=== PATIENT | female | born 1980 | race American Indian/Alaskan Native ===

== ENCOUNTER 2020-07-12 07:06 | Day surgery (SDC) | payer OTHER ==
[~2020-07-12 07:06] MED LIST: LACTATED RINGERS 1,000 ML IV SCH; MIDAZOLAM 2 MG/2 ML INJ IV NR
[2020-07-12] MEDS ORDERED: FAMOTIDINE 20 MG/2 ML INJ IV NR (07:50)
--- NOTE | 2020-07-12 07:50 | Anesthesia Day of Surgery ---
Anesthesia Day of Surgery - Day of Surgery Patient Examined: Yes Patient H&P Reviewed: Yes Patient is NPO: Yes
--- NOTE | 2020-07-12 07:50 | Anesthesia Consultation ---
Anesthesia Consult and Med Hx Date of service: 07/12/20 - Airway Anesthetic Teeth Evaluation: Good ROM Head & Neck: Adequate Mental/Hyoid Distance: Adequate Mallampati Class: Class II Intubation Access Assessment: Probably Good - Pre-Operative Health Status ASA Pre-Surgery Classification: ASA2 Proposed Anesthetic Plan: General - Pulmonary Hx Smoking: No Hx Sleep Apnea: No ([place] PRE SCREEN NEGATIVE) - Cardiovascular System Hx Hypertension: Yes (takes amlodipine) - Central Nervous System Hx Back Pain: No (s/p left ankle fracture) - Other Systems Hx Cancer: No
[2020-07-12] MEDS ORDERED: SCOPOLAMINE TRANSDERMAL PATCH 72 HR TD NR (08:00)
[2020-07-12] MEDS ORDERED: ceFAZolin/STERILE WATER 2 GM/20 ML SYRINGE IV NR (09:07)
[2020-07-12] MEDS ORDERED: BUPIVACAINE/PF (0.5%) 5 MG/1 ML 30 ML VIAL INFILTRATI ONE ×2 (09:16→10:21)
[2020-07-12] MEDS ORDERED: propofoL 200 MG/20 ML VIAL IV ONE (09:36)
[2020-07-12] MEDS ORDERED: HYDROmorphone 1 MG/1 ML INJ ONE (09:36)
[2020-07-12] MEDS ORDERED: LIDOCAINE MPF (2%) 20 MG/1 ML VIAL 5 ML ONE (09:37)
[2020-07-12] MEDS ORDERED: SODIUM CHLORIDE 0.9% IRR 1,500 ML BOTTLE IR ONE (10:22)
[2020-07-12] MEDS ORDERED: KETOROLAC 30 MG/1 ML INJ ONE (10:34)
[2020-07-12] MEDS ORDERED: ONDANSETRON 4 MG/2 ML INJ ONE (10:34)
--- NOTE | 2020-07-12 10:56 | Procedure Note ---
Date of procedure: 07/12/20 Pre-op diagnosis: Right carpal tunnel syndrome Post-op diagnosis: same Procedure: right endoscopic carpal tunnel release Procedure The patient was brought to the OR placed in the OR table in supine position following induction and intubation anesthesia the patient's right upper extremity was prepped and draped in the usual sterile manner a timeout procedure was done to identify the patient and the correct operative site next the arm was exsanguinated followed by inflation of the pneumatic tourniquet to 250 mmHg a volar incision was made at the distal wrist crease this is taken down through skin and subcutaneous using loupe magnification the superficial flexor sheath was identified next the carpal canal was entered using dilators andthe arthroscope was inserted the patient was noted to have some tightness at the carpal canal and the transverse carpal transverse carpal ligament was identified with the arthroscope in line with the fourth metacarpal the knife blade assembly was elevated the ligament was released from distal to proximal care was taken to release the ligament as completely as possible a second look was done and it appeared that the ligament was completely released at this point The wound was irrigated and was closed in a standard routine fashion. Dressings were applied the patient tolerated the procedure there were no complications she was sent to postanesthesia recovery in stable condition Anesthesia: MAC Surgeon: CARLITA MAXWELL Estimated blood loss: minimal Pathology: none Condition: stable Disposition: PACU
[2020-07-12] MEDS: fentaNYL 100 MCG/2 ML INJ IV PRN ×2 (10:59→11:09)
[2020-07-12] MEDS ORDERED: HYDROcodone/ACETAMINOPHEN 5-325 MG TAB PO PRN (11:30)
[2020-07-12 12:00] VITALS: BP 110/73
--- NOTE | 2020-07-12 12:50 | Post Anesthesia Evaluation ---
- Post Anesthesia Evaluation Patient Participated: Yes Airway Patent: Yes Stable Respiratory Function: Yes Nausea/Vomiting: No Temp > 96.8F: Yes Pain Manageable: Yes Adequeate Hydration: Yes Anesthesia Complications: No
== END 2020-07-12 12:15 | disposition home or self-care (01) ==
LOC: OR 07:06
PROVIDERS: ATTEND Orthopaedic Surgery
DX: G56.01 Carpal tunnel syndrome, right upper limb (principal); I10 Essential (primary) hypertension; Z98.890 Other specified postprocedural states; Z79.899 Other long term (current) drug therapy
CPT/HCPCS: 29848; 36415; 84703; J0690; J1170; J1885; J2250; J2405; J2704; J3010; J7120